=== PATIENT | female | born 1990 | race Caucasian/White ===

== ENCOUNTER → 2020-01-16 10:36 | Outpatient (BNVA) | payer MEDICAID, SELFPAY | PROVIDERS: Family Provider Nurse Practitioner; Visit Provider Family Medicine | DX: R07.9 Chest pain, unspecified (principal); F17.200 Nicotine dependence, unspecified, uncomplicated; F10.10 Alcohol abuse, uncomplicated | CPT/HCPCS: 80053; 80061; 83721; 84443; 85025 ==

== ENCOUNTER → 2021-12-09 13:46 | Outpatient (BNVA) | payer MEDICAID, SELFPAY | PROVIDERS: Family Provider Nurse Practitioner; PCP Nurse Practitioner; Visit Provider Student in an Organized Health Care Education/Training Program | DX: M77.11 Lateral epicondylitis, right elbow (principal); M75.41 Impingement syndrome of right shoulder | CPT/HCPCS: 20610; 73080; 99204; J3301 ==

== ENCOUNTER 2022-05-28 11:47 | Outpatient (CLI) | payer MEDICAID, SELFPAY ==
--- NOTE | 2022-05-28 12:00 | MR_ITS ---
WS: [id number] EXAMINATION: MR shoulder RT wo con* [id number] ORDER DATE: 05/28/2022 12:08 PM COMPARISON: None. HISTORY: R20.0 - Anesthesia of skin CONTRAST: None. TECHNIQUE: Axial T2 STAR, coronal proton density fat sat, sagittal T2 fat sat, sagittal proton densit y fat sat, axial proton density fat sat, coronal T2 fat sat, and coronal T1 performed. After contrast , axial T1 fat sat, coronal T1 fat sat, and sagittal T1 fat sat were performed. FINDINGS: Moderate degenerative arthritis AC joint with mild edema. Slight subacromial spurring. Mild narrowing of the subacromial space. Tendinopathy distal supraspinatus and infraspinatus. Tiny undersurface ins ertional tears supraspinatus and infraspinatus distally. Normal teres minor and subscapularis. No hig h-grade rotator cuff tears. Biceps tendon is intact within the bicipital groove. Glenoid labrum appears grossly intact. Intra-art icular biceps tendon appears intact. Biceps labral anchor appears intact. MR/MR shoulder RT wo con* [id number] IMPRESSION: 1. Moderate degenerative arthritis AC joint with mild edema. Slight subacromia l spurring. Impingement on the distal supraspinatus with mild subacromial narro wing. 2. Tiny undersurface tear distal supraspinatus and infraspinatus at the insert ion. Tendinopathy supraspinatus and infraspinatus. 3. No high-grade rotator cuff tears. 4. Normal biceps tendon in the bicipital groove. 5. No other suspicious findings.
== END 2022-05-28 11:48 | disposition home or self-care (01) ==
LOC: RAD 11:50
PROVIDERS: PCP Nurse Practitioner; Visit Provider Student in an Organized Health Care Education/Training Program
DX: R20.0 Anesthesia of skin (principal); R20.2 Paresthesia of skin; M19.011 Primary osteoarthritis, right shoulder
CPT/HCPCS: 73221

== ENCOUNTER → 2022-07-14 15:19 | Outpatient (BNVA) | payer MEDICAID, SELFPAY | PROVIDERS: PCP Nurse Practitioner; Visit Provider Orthopaedic Surgery | DX: M54.2 Cervicalgia (principal) | CPT/HCPCS: 72050 ==

== ENCOUNTER 2022-07-30 12:50 | Outpatient (CLI) | payer MEDICAID, SELFPAY ==
--- NOTE | 2022-07-30 13:00 | MR_ITS ---
WS: [id number] MRI CERVICAL SPINE NONCONTRAST HISTORY: neck pain, RIGHT upper extremity pain. COMPARISON: 07/14/2022 Technique: Multiplanar, multisequence noncontrast imaging of the cervical spine. Mild straightening of the normal cervical lordosis. Signal within the cervical cord is normal. Visualized posterior fossa is unremarkable. Craniocervical junction, C1 and C2 relationship, odontoid process and soft tissues are normal. C2-C3: Normal. C3-C4: Normal. C4-C5: Normal. C5-C6: Normal. C6-C7: Normal. C7-T1: Normal. Paraspinal soft tissue are normal. MR/MR cervical spin wo con* [id number] IMPRESSION: Normal MRI C-spine.
== END 2022-07-30 12:51 | disposition home or self-care (01) ==
PROVIDERS: PCP Nurse Practitioner; Visit Provider Orthopaedic Surgery
DX: M54.2 Cervicalgia (principal)
CPT/HCPCS: 72141

== ENCOUNTER 2022-11-26 08:05 | Day surgery (SDC) | payer MEDICAID, SELFPAY ==
[2022-11-26] VITALS (13 sets, daily range): BP systolic 141–166; BP diastolic 100–119; PULSE 55–99; RESP 14–24; TEMP 36.1–36.3; O2SAT 98–100; BMI 25.4
[2022-11-26 08:48] LABS: OR HCG Qualitative Urine Negative (Negative)
--- NOTE | 2022-11-26 09:00 | P.ANESASSM_ITS ---
Pre-Anesthetic Assessment Height/Weight: Height 1.75 m Weight 78.018 kg Temp Pulse Resp BP Pulse Ox O2 Del Method 97.4 F L 82 14 141/103 99 Room Air 11/26/22 08:23 11/26/22 09:44 11/26/22 09:44 11/26/22 09:44 11/26/22 09:44 11/26/22 09:30 Preop Diagnosis: Right carpal Tunnel syndrome, right shoulder AC arthritis, subacromial impi Operation Date: 11/26/22 09:45 Proposed Procedures p Carpal Tunnel Release(Right) - Larry Radha, DO s Shoulder Arthroscopy(possible bicep tenodesis)(Right) - Larry [place], DO s Subacromial Decompression(rotator cuff debridement)(Right) - Larry Radha, DO s AC Joint Resection(Right) - Larry Radha, DO Familial anesthetic complications: None Was Beta Gauri taken within 24 hours: N/A Was Clonidine taken within 24 hours: N/A Last intake: Intake Last Liquid Date 11/25/22 Last Liquid Time 15:00 Last Solid Date 11/25/22 Last Solid Time 15:00 Social Alcohol and No tobacco Exam alert, oriented x 3, clear to auscultation bilaterally and regular rate & rhythm Airway Mallampati: Class II Dentition: full GI Gastroesophageal Reflux Disease Anesthetic Plan ASA status: 2 Anesthesia: General and Regional (specify below) Risk of > 500 ml blood loss (7ml/kg in children): No Medications/Allergies Home Medications Medication Instructions Recorded Confirmed Last Taken Type mirtazapine 15 mg tablet (Remeron) 15 mg PO DAILY #30 tabs 09/24/22 11/26/22 09/16/22 Rx ondansetron 4 mg disintegrating 4 mg PO Q8H PRN nausea and 11/26/22 Unknown Rx tablet vomiting 3 days #9 tabs oxycodone-acetaminophen 5 mg-325 1 tab PO Q6H PRN pain 7 days #28 11/26/22 Unknown Rx mg tablet (Percocet) tabs Allergies Allergy/AdvReac Type Severity Reaction Status Date / Time hydrocodone Allergy ADR-Itching Verified 11/26/22 08:28 Current Medications Generic Name Dose Route Start Last Admin Trade Name Freq PRN Reason Stop Dose Admin Sodium Chloride 1,000 mls @ 30 mls/hr 11/26/22 08:15 11/26/22 09:14 Sodium Chloride 0.9% IV 11/27/22 08:14 30 mls/hr .Q24H KOURTNEY Administration Scopolamine 1 patch 11/26/22 08:09 11/26/22 09:48 Scopolamine 1.5 Patch TRANSDERMA 1 patch ONCE PRN Administration anesthetic related nausea PFSH Anesthesia Medical History Bronchitis GERD (gastroesophageal reflux disease) Impingement syndrome, shoulder Right tennis elbow Social History Smoking and tobacco/nicotine status: current every day tobacco/nicotine user Second hand smoke exposure: No Alcohol intake: current Alcohol intake frequency: 3 or more drinks per day Alcohol type: hard liquor Substance/Drug Use: current Adopted: No Caregiver/support person: No Lives independently: No Female Reproductive History Date of last menstrual period: 10/28/22 Data Anesthesia Cardiac Studies: No Data to Display
--- NOTE | 2022-11-26 09:08 | W.PM.OPSUD ---
Surgery/Procedure H&P Update DATE OF PROCEDURE: November 26, 2022 DATE H&P PERFORMED: 11/06/22 H&P UPDATE INFORMATION: I have reviewed H&P completed within last 30 days, I have examined patient prior to procedure and No changes to prior documentation PREOP DIAGNOSIS: Right carpal Tunnel syndrome, right shoulder AC arthritis, subacromial impi PRIMARY INDICATION FOR PROCEDURE: Right carpal tunnel syndrome, right shoulder AC joint arthritis, subacromial impingement, biceps tendinitis, rotator cuff tear PLANNED PROCEDURE: Operation Date: 11/26/22 09:45 Proposed Procedures p Carpal Tunnel Release(Right) - DO shasta Goodwin Shoulder Arthroscopy(possible bicep tenodesis)(Right) - DO shasta Goodwin Subacromial Decompression(rotator cuff debridement)(Right) - DO shasta Goodwin AC Joint Resection(Right) - Larry Garcia DO
[2022-11-26] MEDS: sodium chloride 0.9% 1,000 ML 30 ML IV (09:14)
[2022-11-26] MEDS: ketorolac 30 mg/mL INJ IVP (09:16)
[2022-11-26] MEDS: acetaminophen 1,000 MG/100 ML PIGGYBACK 400 MG IV (09:17)
[2022-11-26] MEDS: scopolamine 1.5 Patch 1 PATCH TRANSDERMA (09:48)
--- NOTE | 2022-11-26 10:29 | ANES.PROC ---
Anesthesia Procedures Procedure/Date: 11/26/22 Nerve Block ^: Nerve Block 1: Main Anesthesia: general anesthesia Time Out Performed: Yes Consent: requested by attending/covering physician, from patient, from other, risks and benefits reviewed and patient agrees to proceed Nerve block location: interscalene (R) Anesthesia monitors applied: pulse oximetry, EKG, BP cuff and oxygen Nerve block position: supine Anesthetic Used: ropivicaine 0.5% (20 ml) and with decadron ( 4 mg) Ultrasound used to: recognize landmarks, visualize and ID brachial plexus, in supraclavicular region and visualize and ID interscalene groove Nerve Stimulator Used?: No Interscalene/Femoral BLK: 2 stimuplex 22 g needle used for position and inplane approach, visualize local anesthetic spread and no vascular puncture identified Injection: neg aspiration of heme Patient Tolerated Procedure: well Complications: none
[2022-11-26] MEDS: ceFAZolin 2,000 MG in sodium chloride 0.9% (plus) 50 ML 100 MG IV (10:34)
[2022-11-26] MEDS: lidocaine-epi 2% PF 1:200,000 20 mL SDV XX (12:41)
[2022-11-26] MEDS: ROPivacaine 0.5% SDV 30 mL 150 MG INJECTION (12:41)
--- NOTE | 2022-11-26 12:54 | P.BOP_ITS ---
Date of Procedure: 11/26/2022 Surgeon: Larry Garcia DO Machine Hose Cutter(s): None Procedure(s) performed: Right shoulder diagnostic and surgical arthroscopy with biceps tenodesis Right shoulder diagnostic and surgical arthroscopy subacromial decompression Right shoulder diagnostic and surgical arthroscopy AC joint resection Right shoulder diagnostic and surgical arthroscopy with rotator cuff debridement Right carpal tunnel release Findings of the procedure(s): Right shoulder subacromial impingement AC resection and partial rotator cuff tearing, biceps tendonitis And unstable biceps labrum anchor, procedure went as planned, right carpal tunnel syndrome, right carpal tunnel release went as planned with no complications Estimated blood loss: 15 cc Specimen(s) removed: None Post-operative diagnosis: Right carpal tunnel syndrome, right shoulder biceps tendinitis/labral tearing, AC joint arthritis, subacromial impingement, partial bursal sided rotator cuff tearing
--- NOTE | 2022-11-26 12:57 | P.OP_ITS ---
Operative Report Date of procedure: November 26, 2022 Pre-op diagnosis: Right carpal tunnel syndrome, right shoulder AC joint arthritis, subacromial impingement, biceps tendinitis, rotator cuff tear Implants: Arthrex 4.75mm biceps tenodesis loop and tack kit Surgeon: Larry Garcia DO Procedure: Post-op diagnosis: ?Right carpal tunnel syndrome, right shoulder biceps tendinitis/labral tearingUnstable biceps anchor, AC joint arthritis, subacromial impingement, partial bursal sided rotator cuff tearing Procedure done: Right shoulder diagnostic and surgical arthroscopy with biceps tenodesis Right shoulder diagnostic and surgical arthroscopy subacromial decompression Right shoulder diagnostic and surgical arthroscopy AC joint resection Right shoulder diagnostic and surgical arthroscopy with rotator cuff debridement Right carpal tunnel release Surgeon: Larry Garcia DO Estimated blood loss: 15 Esmarch tourniquet for carpal tunnel release 9 minutes IV fluids: 800mL Complications: None Findings: See operative report narrative Condition: stable Disposition: same day Procedure: Brief History: Patient been seen and worked up in the outpatient setting for right shoulder pain and right hand numbness and tingling.? Patient's been worked up for her C- spine. Which has been negative. She has positive right carpal tunnel syndrome on nerve conduction study and she is responded only for temporary relief due to conservative treatment for right shoulder pain of cortisone therapy. At this point time she had an MRI which showed findings listed below. Given she has failed conservative treatment we talked about her treatment options. At this point in time We talked about risk benefits complication alternatives surgical n onsurgical treatment options.? Patient at this point time through shared decision making like to proceed with a right shoulder diagnostic and surgical arthroscopy as well as while under anesthesia would like to have the right carpal tunnel released.? Through shared decision making agreed to proceed with this plan.? All questions answered.? Understanding her risk of surgery she agrees to proceed with surgical intervention.? All questions have been answered at this time.? Patient elects proceed with surgery and consent obtained in office. MR/MR shoulder RT wo con* [id number] IMPRESSION: ? 1.? Moderate degenerative arthritis AC joint with mild edema. Slight subacromial spurring. Impingement on the distal supraspinatus with mild subacromial narrowing. 2.? Tiny undersurface tear distal supraspinatus and infraspinatus at the insertion. Tendinopathy supraspinatus and infraspinatus. 3.? No high-grade rotator cuff tears. 4.? Normal biceps tendon in the bicipital groove. 5.? No other suspicious findings. ? . Procedure: Patient seen evaluated in the preoperative holding area.? Consent reviewed and signed with patient.? Once again reviewed patient's MRI results as well as? planned surgical intervention.? Correct extremity marked.? Patient seen evaluated by anesthesia department received regional anesthesia.? Once ready for surgery was taken back to the operative suite.? Patient then subsequently underwent anesthesia per the anesthesia department was transported onto the OR table.? Patient was then placed into a lateral decubitus position with a beanbag and was appropriately secured to the bed.? All bony prominences well-padded.? Patient then had the right upper extremity was then prepped and draped in standard orthopedic fashion.? Patient received appropriate preoperative antibiotics.? Final timeout performed. The right upper extremity was then held in hanging from traction utilizing sterile technique.? Next started with standard diagnostic and surgical arthroscopy with posterior portal position introduced arthroscope into the glenohumeral joint.? Visualized the glenohumeral joint I then introduced a spi nal needle within the rotator cuff interval to confirm appropriate anterior portal placement.? Once this was confirmed I then made my small incision and then introduced my arthroscopic shaver into the glenohumeral joint.? After flushing the joint fluid, was clearly evident patient had biceps tendon tearing as well as unstable biceps anchor most pronounced in the posterior aspect of the superior labrum.? Given there appears to be healthy intra-articular tendon plan was for an intra-articular biceps tenodesis at the superior portion as it enters the intertubercular groove, given patient is a young labor. Thermal wand introduced into the rotator interval.? I then release of the rotator interval to have appropriate visualization and the inability to perform biceps tenodesis.? At this point I established a purple passport cannula which was introduced.? Next I performed an Arthrex loop and tap biceps tenodesis.? Passer was then made through the tendon luggage tag stitch around and then lassoed around twice I then utilized a thermal wand to release the biceps tendon at the anchor to perform with tenotomy.? I then loaded with suture onto an Arthrex 4.75 swivel lock suture anchor.? A punch was then placed in appropriate position at the entry point into the intertubercular groove just superior to the subscapularis tendon.? Punch was then introduced to the appropriate depth.? The suture loaded on the swivel lock was then advanced held under appropriate tension and shoulder lock anchor was then advanced and had excellent fixation.? Excess suture was then cut biceps tenodesis was complete.? I then utilized a thermal wand to seal the edges of the superior labrum. Visualization of the labrum was grossly intact with just mild slight fraying throughout.? Thermal wand was used to seal up the frayed edges of the labrum.? Next Axillary recess was free from loose bodies.? Cartilage was found to be intact intra-articular and only grade 0 chondromalacia noted. ?Next a visualized the rotator cuff superiorly and there was found negative escape bubble sign the rotator cuff is failed to be intact with no partial tearing of the undersurface.? ? This completed my work within the glenohumeral joint all fluid was suctioned free of the joint.? ?Next I reintroduced the arthroscope posteriorly.? And went to the subacromial space.? I established my lateral working portal.? Thermal wand was then introduced laterally and then I subsequently performed extensive bursectomy of the subacromial space.? Patient had pronounced anterior bone spur.? At this point time I proceeded with my AC joint resection thermal wand was used and track to the anterior edge of the acromion and then tracked all the way to the AC joint.? Once identified the AC joint this was very arthritic in nature.? Thermal wand was placed anteriorly to establish appropriate plane for AC joint resection.? Once appropriate margins and anterior inferior and anterior capsule was released I then introduced arthroscopic shaver and a bur and performed AC joint resection of both the acromion to coplane at the AC joint and a distal clavicle resection was then performed totaling 1 cm in size and was confirmed.? This completed my AC joint resection and I then introduced the arthroscopic shaver laterally while continuing to view posteriorly.? I then performed an acromioplasty to complete my subacromial decompression prior to rotator cuff evaluation subacromially. ?Next the arthroscopic shaver was then introduced laterally at this point time completed my subacromial bursectom? With complete bursectomy performed I then utilized the arthroscopic bur to perform acromioplasty and coplaning of the anterior bone spur.? Next I then visualized the rotator cuff and took the shoulder through range of motion which was found Small partial articular sided fraying and tearing but no full-thickness rotator cuff tear. As result utilized arthroscopic shaver to perform rotator cuff debridement.? I then took the shoulder through range of motion and once again visualize rotator cuff moving as a unit with no full-thickness rotator cuff tear. I then switched my arthroscopic viewing portal through the lateral portal to confirm appropriate acromioplasty and finalized touches were then performed of the acromioplasty and bursectomy at that time.? Once again visualize rotator cuff and this was intact.? This completed my diagnostic and surgical arthroscopy of the shoulder.? ?All fluid was suctioned from the shoulder.? All instruments were removed.? The lateral incision was then closed with nylon stitches.? As well as the portal sites closed with portal nylon stitches.? Xeroform 4 x 4's ABD and tape was then applied to the shoulder.? All drapes were completely taken down.? At this point in time an armboard was applied to the right arm with plan for proceeding with carpal tunnel release.? Beanbag was deflated patient was laid in supine position right arm to the armboard.? Patient's right upper extremity was then prepped and draped in standard orthopedic fashion.? Final timeout performed once again to confirm right carpal tunnel release. Under sterile aseptic technique patient received local anesthesia over the preplanned carpal tunnel incision site.? Esmarch was used and made an Esmarch tourniquet at the right forearm in order to not place pressure on the biceps given bicep tenodesis repair. A standard mini open carpal tunnel incision was made.? Starting distally at De Oliveira's cardinal line in line with the fourth ray extending proximally distal to the wrist crease.? Sharp scalpel incision was made through skin and subcutaneous tissue.? Self-retaining retractor was placed and the palmar fascia was identified.? This was then split longitudinally and direct visualization of the transverse carpal ligament was then made.? I then utilizing scalpel feathered through the transverse carpal ligament until I entered the floor of the transverse carpal tunnel ligament into the carpal tunnel.? Next I switched to dissection scissors and completed my release of the transverse carpal ligament distally with care to protect the recurrent motor branch.? I completely released into the palmar fat and until no entrapment was noted distally.? Care was made to protect the superficial palmar arch during my distal dissection.? Next I then placed a [place] underneath the transverse carpal tunnel ligament to protect the contents of the carpal tunnel and subsequently utilizing dissection scissors under loupe magnification completely released the transverse carpal ligament proximally into the median antebrachial fascia.? Care was made to protect the palmar cutaneous branch by keeping my scissors curved ulnarly.? Once completely released, I then placed my [place] and had appropriate decompression of the carpal tunnel proximally as well as distally.? I then inspected the contents of the carpal tunnel which showed an hourglass shape of the median nerve showing its compression.? No masses were noted.? Tendons appeared healthy.? Wound was then thoroughly irrigated.? Tourniquet deflated.? Hemostasis satisfactory with bipolar electrocautery.? I then closed the incision with interrupted nylon stitches.? Xeroform 4 x 4's and a bulky soft dressing was applied to the right upper extremity as well as sling to the right shoulder.? Patient was then awakened from anesthesia and taken to PACU in stable condition.? Patient tolerated procedure without complications. Disposition: Patient taken to PACU in stable condition recovering well.? Dressing clean dry and intact.? Patient will receive appropriate discharge instructions as well as pain medication postoperatively.? Patient to follow-up with me in the office in 2 weeks.? They understand they may be nonweightbearing to the operative extremity will follow bicep tenodesis protocol. UltraSling on in place at this time. Pt to keep incision clean dry and intact.? Patient understands if any questions or concerns he may contact the office.
[2022-11-26] MEDS: labetalol 5 mg/mL SDV 20mL 10 MG IVP (13:20)
--- NOTE | 2022-11-26 13:20 | ANE.PACU2 ---
Inpatient post-anesthesia follow up: Airway intact: Yes Vital signs: Temperature 97 F Pulse Rate 60 Respiratory Rate 18 Blood Pressure 155/112 Pulse Oximetry 99 Oxygen Delivery Me thod Room Air Oxygen Flow Rate Fraction of Inspir ed Oxygen Hydration adequate: Yes Nausea and vomiting: No Pain level: 1 Mental status: Baseline
[2022-11-26] MEDS: oxyCODONE-APAP 5-325 mg Tablet 1 TAB PO (13:42)
== END 2022-11-26 14:13 | disposition home or self-care (01) ==
PROVIDERS: Anesthesiology; PCP Nurse Practitioner; Visit Provider Student in an Organized Health Care Education/Training Program
PROC: (CPT 64721; principal; 2022-11-26 09:35)
PROC: (CPT 29805; 2022-11-26 09:35)
PROC: (CPT 29826; 2022-11-26 09:35)
PROC: 0RSG0ZZ Reposition Right Acromioclavicular Joint, Open Approach (ICD-10-PCS; CPT 29823; 2022-11-26 09:35)
DX: G56.01 Carpal tunnel syndrome, right upper limb (principal); M19.011 Primary osteoarthritis, right shoulder; M75.41 Impingement syndrome of right shoulder; M75.21 Bicipital tendinitis, right shoulder; M75.101 Unspecified rotator cuff tear or rupture of right shoulder, not specified as traumatic; K21.9 Gastro-esophageal reflux disease without esophagitis
CPT/HCPCS: 29823; 29824; 29828; 64721; 81025; 84703; C1713; J0131; J0690; J1100; J1200; J1885; J2250; J2405; J2704; J2710; J2795; J3010; J3490; J7030

== ENCOUNTER 2023-01-05 06:00 | Outpatient (RCR) | payer MEDICAID, SELFPAY | END 2023-01-07 23:59 | disposition home or self-care (01) | LOC: WPT 06:00 | PROVIDERS: Visit Provider Student in an Organized Health Care Education/Training Program | DX: Z98.890 Other specified postprocedural states (principal) | CPT/HCPCS: 97161 ==

== ENCOUNTER → 2023-10-01 07:45 | Outpatient (BNVA) | payer MEDICAID, SELFPAY | PROVIDERS: PCP Nurse Practitioner Family; Visit Provider Nurse Practitioner Women's Health | DX: Z34.90 Encounter for supervision of normal pregnancy, unspecified, unspecified trimester (principal); Z78.9 Other specified health status | CPT/HCPCS: 80307; 81025; 83036; 84439; 84443; 84702 ==

== ENCOUNTER → 2023-10-06 12:37 | Outpatient (BNVA) | payer MEDICAID, SELFPAY | PROVIDERS: PCP Nurse Practitioner Family; Visit Provider Nurse Practitioner Women's Health | DX: O26.891 Other specified pregnancy related conditions, first trimester (principal) | CPT/HCPCS: 76801 ==

== ENCOUNTER → 2023-10-13 07:53 | Outpatient (BNVA) | payer MEDICAID, SELFPAY | PROVIDERS: PCP Nurse Practitioner Family; Visit Provider Nurse Practitioner Women's Health | DX: Z34.80 Encounter for supervision of other normal pregnancy, unspecified trimester (principal) | CPT/HCPCS: 80307; 84315; 85025; 86592; 86762; 86803; 86850; 86900; 87086; 87340; 87806 ==

== ENCOUNTER → 2023-10-14 00:11 | Outpatient (BNVA) | payer MEDICAID, SELFPAY | PROVIDERS: PCP Nurse Practitioner Family; Visit Provider Nurse Practitioner Women's Health | DX: Z34.80 Encounter for supervision of other normal pregnancy, unspecified trimester (principal) | CPT/HCPCS: 87522 ==

== ENCOUNTER → 2023-10-25 07:54 | Outpatient (BNVA) | payer MEDICAID, SELFPAY | PROVIDERS: PCP Nurse Practitioner Family; Visit Provider Obstetrics & Gynecology | DX: Z34.80 Encounter for supervision of other normal pregnancy, unspecified trimester (principal) | CPT/HCPCS: 80076; 84315; 87340; 87491; 87591; 87624 ==

== ENCOUNTER → 2023-11-23 13:54 | Outpatient (BNVA) | payer MEDICAID, SELFPAY | PROVIDERS: PCP Nurse Practitioner Family; Visit Provider Nurse Practitioner Women's Health | DX: Z34.90 Encounter for supervision of normal pregnancy, unspecified, unspecified trimester (principal) | CPT/HCPCS: 82105; 84315 ==

== ENCOUNTER → 2023-12-07 14:27 | Outpatient (BNVA) | payer MEDICAID, SELFPAY | PROVIDERS: PCP Nurse Practitioner Family; Visit Provider Obstetrics & Gynecology | DX: O26.892 Other specified pregnancy related conditions, second trimester (principal); Z3A.20 20 weeks gestation of pregnancy | CPT/HCPCS: 76805 ==

== ENCOUNTER → 2024-01-03 14:27 | Outpatient (BNVA) | payer MEDICAID, SELFPAY | PROVIDERS: PCP Nurse Practitioner Family; Visit Provider Nurse Practitioner Women's Health | DX: Z34.80 Encounter for supervision of other normal pregnancy, unspecified trimester (principal) | CPT/HCPCS: 82950; 84315 ==

== ENCOUNTER → 2024-01-31 11:24 | Outpatient (BNVA) | payer MEDICAID, SELFPAY | PROVIDERS: PCP Nurse Practitioner Family; Visit Provider Obstetrics & Gynecology | DX: Z34.80 Encounter for supervision of other normal pregnancy, unspecified trimester (principal) | CPT/HCPCS: 84315; 85025 ==

== ENCOUNTER → 2024-03-06 10:15 | Outpatient (BNVA) | payer MEDICAID, SELFPAY | PROVIDERS: PCP Nurse Practitioner Family; Visit Provider Obstetrics & Gynecology | DX: Z34.80 Encounter for supervision of other normal pregnancy, unspecified trimester (principal) | CPT/HCPCS: 84315; 85025 ==

== ENCOUNTER → 2024-03-17 12:45 | Outpatient (BNVA) | payer MEDICAID, SELFPAY | PROVIDERS: PCP Nurse Practitioner Family; Visit Provider Nurse Practitioner Women's Health | DX: Z34.80 Encounter for supervision of other normal pregnancy, unspecified trimester (principal) | CPT/HCPCS: 84315 ==

== ENCOUNTER → 2024-04-03 13:22 | Outpatient (BNVA) | payer MEDICAID, SELFPAY | PROVIDERS: PCP Nurse Practitioner Family; Visit Provider Obstetrics & Gynecology | DX: Z34.80 Encounter for supervision of other normal pregnancy, unspecified trimester (principal) | CPT/HCPCS: 84315; 87081 ==

== ENCOUNTER → 2024-04-14 12:55 | Outpatient (BNVA) | payer MEDICAID, SELFPAY | PROVIDERS: PCP Nurse Practitioner Family; Visit Provider Obstetrics & Gynecology | DX: Z34.80 Encounter for supervision of other normal pregnancy, unspecified trimester (principal) | CPT/HCPCS: 84315 ==

== ENCOUNTER 2024-04-16 22:48 | Inpatient (IN) | payer MEDICAID, SELFPAY ==
[2024-04-16] VITALS (13 sets, daily range): BP systolic 119–138; BP diastolic 66–83; PULSE 73–106; TEMP 36; BMI 30.8
[2024-04-16 18:10] LABS: Basophils % 0.2 %; Eosinophils # 0.1 10^3/uL (0.0-0.8); Eosinophils % 0.5 %; Hematocrit 35.9 % (36-47); Lymphocytes # 2.2 10^3/uL (0.8-4.8); Lymphocytes % 20.9 %; Mean Corpuscular HGB Conc 34.5 g/dL (30-55); Mean Corpuscular Hemoglobin 31.2 pg (27-33); Mean Corpuscular Volume 90.4 fl (85-98); Mean Platelet Volume 10.9 fL (7.4-10.4); Monocytes # 0.5 10^3/uL (0.2-0.9); Monocytes % 4.7 %; Neutrophils # 7.76 10^3/uL (1.8-7.7); Neutrophils % 73.3 %; Nucleated Red Blood Cells % 0 %; Platelet Count 224 10^3/cmm (157-399); Red Blood Count 3.97 10^6/uL (3.85-5.65); Red Cell Distribution Width 12.4 % (12.1-15.1); White Blood Count 10.58 10^3/uL (3.29-11.43)
[2024-04-16] MEDS: miSOPROStol 100 mcg tablet 25 MCG VAGINAL (18:19)
--- NOTE | 2024-04-16 18:27 | PM.OPHPUD ---
Labor & Delivery H&P Update Date of Procedure: April 16, 2024 Date H&P Performed: 11/06/22 Changes to previous documentation: 34-year-old female at 39 weeks gestation with JAYLAN 04/23/2024 admitted to labor and delivery for elective induction of labor. Patient's record has been reviewed. PMH?hep C with undetectable viral load. EFM?category 1 Cervix?2 cm / 50%/-2 vertex presentation by nursing staff. Admission Diagnosis: Preop diagnosis: 39-week IUP Primary indication for procedure: Elective induction of labor Planned procedure: Cervical ripening with induction of labor Related Problem List Diagnoses (1) 39 weeks gestation of : (2) History of hepatitis C: (3) Request for sterilization: (4) History of drug abuse in remission: (5) Tobacco abuse:
[2024-04-16] MEDS: lactated ringers 1,000 ML 999 ML IV (22:54)
[2024-04-17] VITALS (185 sets, daily range): BP systolic 106–157; BP diastolic 56–101; PULSE 60–100; RESP 16–18; TEMP 36.4–36.8; O2SAT 88–100
[2024-04-17] MEDS: sodium chloride 0.9% 500 ML IV (02:10)
--- NOTE | 2024-04-17 02:27 | ANES.PREANE2 ---
Pre-Anesthetic Assessment Height/Weight: Height 1.78 m Weight 97.522 kg Temp Pulse BP O2 Del Method 96.8 F L 70 145/87 Room Air 04/16/24 19:54 04/17/24 02:25 04/17/24 02:25 04/16/24 17:22 Preop Diagnosis: 39-week IUP Epidural Familial anesthetic complications: None Was Beta Gauri taken within 24 hours: N/A Was Clonidine taken within 24 hours: N/A Last intake: Solid food: 0 Social Tobacco and No alcohol 1 pack(s) per day Exam alert, oriented x 3, clear to auscultation bilaterally and regular rate & rhythm Airway Submandibular: within normal limits Cervical ROM: within normal limits Mallampati: Class III Dentition: full History/ROS No significant history except as noted and No significant complaints Pulmonary None reported CV/HEM None reported None reported Hepatic Hx hep c GI Gastroesophageal Reflux Disease Metabolic None reported Musc/skel None reported Neuropsych Neuropathy Anesthetic Plan ASA status: 2 Anesthesia: Anesthesia Evaluation, General and Regional (specify below) (Epidural) Risk of > 500 ml blood loss (7ml/kg in children): Yes, adequate IV access and fluids planned Medications/Allergies Home Medications ?Medication ?Instructions ?Recorded ?Confirmed ?Last Taken ?Type docosahexaenoic acid 200 mg 200 mg PO DAILY 11/23/23 04/16/24 04/15/24 History capsule ( [facility]) omeprazole 40 mg capsule,delayed 40 mg PO DAILY #90 caps 11/23/23 04/16/24 04/15/24 Rx release Allergies Allergy/AdvReac Type Severity Reaction Status Date / Time hydrocodone Allergy ADR-Itching Verified 04/14/24 09:31 Current Medications Generic Name Dose Route Start Last Admin Trade Name Freq PRN Reason Stop Dose Admin Lactated Ringer's 1,000 mls @ 999 mls/hr 04/16/24 22:44 04/17/24 01:35 Lactated Ringers IV 999 mls/hr .Q1H1M PRN Infusion Per L&D Rescitation Protocol Sodium Chloride 500 mls @ 500 mls/hr 04/17/24 01:42 04/17/24 02:10 Sodium Chloride 0.9% IV 500 mls/hr .Q1H PRN Administration See label comments [facility] Anesthesia Medical History History of hepatitis C treated with medication Impingement syndrome, shoulder Right tennis elbow Bronchitis GERD (gastroesophageal reflux disease) Surgical History H/O shoulder surgery Social History Smoking and tobacco/nicotine status: current every day tobacco/nicotine user Female Reproductive History : 3 Data Anesthesia 04/16/24 17:45 Short CBC 04/16/24 Range/Units 17:45 WBC 10.58 (3.29-11.43) 10^3/uL Hgb 12.40 (11.27-16.99) g/dL Hct 35.9 L (36-47) % MCV 90.4 (85-98) fl Plt Count 224 (157-399) 10^3/cmm Neut % (Auto) 73.3 % Neut # (Auto) 7.76 H (1.8-7.7) 10^3/uL Cardiac Studies: No Data to Display
[2024-04-17] MEDS: dextrose 5%-lactated ringers 1,000 ML 125 ML IV ×2 (02:38→09:46)
--- NOTE | 2024-04-17 02:59 | ANES.PROC ---
Anesthesia Procedures Procedure/Date: 04/17/24 Epidural: Time Out Performed: Yes Consents Signed: Procedure Consent and NPO Consent Consent: requested by attending/covering physician, from patient, risks and benefits reviewed and patient agrees to proceed Lumbar Level: L3-L4 Epidural position: sitting Epidural procedure: sterile prep of area (betadine), 1% lidocaine to numb the area (3 mLs), neg for paresthesia, test dose given, 1.5% xylocaine 1:200k epi (3 mLs/ 2 mLs), 0.2% Ropivacaine bolus ml (5 mLs), placed PCEA, no systemic response, sterile dressing applied, L.U.D. no apparent complications and 0.2% Ropiavacaine @ mls/hr (13) Additional Comments: TA 6cm, catheter threaded to 12cm. Negative aspiration for CSF and blood. Patient tolerated well.
--- NOTE | 2024-04-17 03:53 | PC.NURSE ---
report given to Sheyla Obando RN at [id number]
[2024-04-17] MEDS: ROPivacaine syringe 100 MG/50 ML SYRINGE 10 MG EPIDURAL ×2 (06:17→09:40)
[2024-04-17] MEDS: acetaminophen 325 mg Tablet 650 MG PO ×2 (08:04→15:38)
[2024-04-17] MEDS: oxytocin 30 UNIT/500 ML BAG IV (09:45)
--- NOTE | 2024-04-17 09:48 | P.PN_ITS ---
Subjective 2 Subjective: Patient received Cytotec last night 1 dose followed by contractions every 2 minutes therefore a second dose was not applied. Patient progressed to 4 cm and has had no further progression. Discussed Pitocin this morning to assist progression of labor. Patient understands and agrees. EFM?category 1 with contractions q. 2 to 4 minutes. Vitals/I&O/Wt Last Vital Signs Temp 98.3 F 04/17/24 08:00 Pulse 76 04/17/24 09:41 Resp 18 04/17/24 05:00 BP 115/56 04/17/24 09:31 Pulse Ox 100 04/17/24 09:41 O2 Del Method Room Air 04/16/24 17:22 04/16/24 04/17/24 04/17/24 22:59 06:59 14:59 Intake Total 1500.00 / 1500.00 941.667 / 941.667 Output Total 200 / 200 Balance 1300.00 / 1300.00 941.667 / 941.667 Weight last 48 hrs Weight 97.522 kg Physical Exam 2 Urinary Catheter Management: Araujo: Cath Placed During This Visit: yes Reason for Continuing Indwelling Catheter: Required Immobilization for Trauma or Surgery or Anesthesia Urinary Catheter Date of Insertion: 04/17/24 Urinary Catheter Time of Insertion: 03:24 Data 04/16/24 17:45 A&P Assessment and plan (1) 39 weeks gestation of : (2) History of hepatitis C: (3) Request for sterilization: (4) History of drug abuse in remission: PDMP PDMP Reviewed: Not Reviewed Attestations 2 Medical Necessity Statement*: Elective induction of labor Coding Level of Care Code Acute Code for Chg Fwd Diagnoses 39 weeks gestation of Z3A.39 History of hepatitis C Z86.19 Request for sterilization Z30.2 History of drug abuse in remission F19.11
--- NOTE | 2024-04-17 12:01 | P.PN_ITS ---
CONTINUING EDUCATION DEAN Subjective 2 Subjective: Interval history: Patient complain of feeling vaginal pressure. EFM variables noted with contractions. Cervix?complete 0 station with bloody show. Nursing staff to start pushing with patient and preparing for delivery.. Labor: Station: -2 Amniotic Membrane Status: Ruptured Monitor Mode: External Contraction Pattern: Irregular Status: Category I Vitals/I&O/Wt Last Vital Signs Temp 97.9 F 04/17/24 10:33 Pulse 87 04/17/24 11:56 Resp 18 04/17/24 05:00 BP 122/74 04/17/24 11:30 Pulse Ox 99 04/17/24 11:56 O2 Del Method Room Air 04/16/24 17:22 04/16/24 04/17/24 04/17/24 22:59 06:59 14:59 Intake Total 1500.00 / 1500.00 950.667 / 950.667 Output Total 200 / 200 Balance 1300.00 / 1300.00 950.667 / 950.667 Weight last 48 hrs Weight 97.522 kg Physical Exam 2 Urinary Catheter Management: Araujo: Cath Placed During This Visit: yes Reason for Continuing Indwelling Catheter: Required Immobilization for Trauma or Surgery or Anesthesia Urinary Catheter Date of Insertion: 04/17/24 Urinary Catheter Time of Insertion: 03:24 Data 04/16/24 17:45 A&P Assessment and plan (1) 39 weeks gestation of : (2) History of hepatitis C: (3) Request for sterilization: (4) History of drug abuse in remission: PDMP PDMP Reviewed: Not Reviewed Attestations 2 Medical Necessity Statement*: Induction of labor Coding Level of Care Code Acute Code for Chg Fwd Diagnoses 39 weeks gestation of Z3A.39 History of hepatitis C Z86.19 Request for sterilization Z30.2 History of drug abuse in remission F19.11
--- NOTE | 2024-04-17 12:04 | PM.MISC ---
Miscellaneous Note Note: Bupivicaine 0.25% 10 cc injected via epidural for refractory pain of contractions
--- NOTE | 2024-04-17 12:52 | P.PCNOB_ITS ---
Delivery Note: Date of delivery: April 17, 2024 Pre-delivery diagnoses: 1. 39 weeks gestation for IOL 2. Multiparity 3. History of hep C (viral load undetec angle) 4. Desires elective sterilization 5. History of tobacco abuse 6. History of alcohol abuse Post-delivery diagnoses: S/p viable baby girl 8 pounds 4 ounces Procedure: Cervical ripening with IOL viable baby girl Op report anesthesia: Epidural Delivering Physician: Maye Cates DO Estimated blood loss (mL): 300 Findings: Viable baby girl Delivery: 34-year-old female delivery via SV D of viable female over intact perineum, the vertex presented OA presentation followed by the posterior then anterior shoulders, the remainder the baby's body followed without difficulty. The umbilical cord was clamped after short delay and cut. The oral and nasal pathways bulb suctioned. Baby placed on the mother's abdomen for bonding and nursing evaluation. Cord blood was obtained from the cord and handed off. The uterus was massaged Pitocin IV solution bolus started. The placenta presented in a Hugo presentation with trailing membranes. The uterus was massaged and firmed well. The cervix and vaginal vault were examined with no lacerations noted. EBL?300 anesthesia?epidural Apgars 8/9 weight 8 pounds 4 ounces Needle instrument sponge counts correct x 2 Mother and infant are both in stable and satisfactory condition. Post-Delivery Status: Stable History History History 3 Term 2 0 Miscarriages/Ectopic 0 Living Children 2 A&P Assessment and plan (1) 39 weeks gestation of : (2) History of hepatitis C: (3) Request for sterilization: PDMP PDMP Reviewed: Not Reviewed Coding Level of Care Code Acute Code for Chg Fwd Diagnoses 39 weeks gestation of Z3A.39 History of hepatitis C Z86.19 Request for sterilization Z30.2
[2024-04-17] MEDS: metoclopramide 5 mg/mL SDV 2 mL 10 MG IVP (13:29)
[2024-04-17] MEDS: lactated ringers 1,000 ML 999 ML IV (13:29)
[2024-04-17] MEDS: citric acid-sodium citrate 30 mL UDC PO (13:29)
[2024-04-17] MEDS: famotidine 20 mg/2 mL INJ IVP (13:29)
--- NOTE | 2024-04-17 14:32 | PM.OP ---
Operative Report Date of procedure: April 17, 2024 Pre-op diagnosis: S/p viable female at 39 weeks Desires elective sterilization Post-op diagnosis: S/p at 39 weeks S/p bilateral fimbriectomy for tubal sterilization Post-op findings: Normal tubes and ovaries bilaterally Procedure done: Mini laparotomy for tubal ligation Specimens removed/disposition: Bilateral tubal segments Surgeon: Maye Cates DO Anesthesia: General Estimated blood loss (mL): 20 Complications: None Findings: Normal tubes and ovaries Condition: stable Disposition: floor Brief History: 34-year-old female G3, P3 delivered via of viable female baby. Patient desires tubal sterilization. Risk and benefits reviewed to include bleeding, infection, future ectopic pregnancies which may require surgery, and complications with anesthesia. Procedure: Patient was taken to surgical suite after consents were obtained. Patient was placed in the supine position and general anesthesia administered. Patient's abdomen was then prepped and draped in the standard fashion. A infraumbilical incision was made and dissected to the fascia. The fascia was incised and tented up and the peritoneum opened bluntly. The omentum was manipulated away from the uterus with a sponge stick and the left fallopian tube teased to the incision opening and grasped with a Fenton and delivered through the incision. A hemostat was used to clamp a large portion of the tube including the fimbria. This was suture-ligated with 0 chromic x 2 transected and the tubal stump cauterized. Good hemostasis was noted. Same procedure was done on the right fallopian tube it is well was suture-ligated x 2 transected and the tubal stump cauterized. The right fallopian tube segment was marked. Both segments handed off. The peritoneum was closed with 2-0 Vicryl the subcu fat approximated with 2-0 Vicryl and the skin closed with 4-0 Vicryl in a running stitch. The incision was then infiltrated with local anesthetic cleansed and a Band-Aid applied. Needle instrument sponge counts correct x 2 Patient is in stable and satisfactory condition. Related Problem List Diagnoses (1) Status post vaginal delivery: (2) Status post tubal ligation: (3) 39 weeks gestation of : (4) History of hepatitis C: (5) Request for sterilization: (6) History of drug abuse in remission: (7) Tobacco abuse:
[2024-04-17] MEDS: lidocaine 2% INJ 20 mL INJECTION (14:40)
--- NOTE | 2024-04-17 15:50 | ANE.PACU2 ---
Inpatient post-anesthesia follow up: Airway intact: Yes Vital signs: Temperature 97.7 F Pulse Rate 80 Respiratory Rate 20 Blood Pressure 124/82 Pulse Oximetry 100 Oxygen Delivery Me thod Room Air Oxygen Flow Rate Fraction of Inspir ed Oxygen Hydration adequate: Yes Nausea and vomiting: No Pain level: 1 Mental status: Baseline Epidural Start/End: Epidural Start Date: 04/16/24 Epidural Start Time: 02:30 Epidural End Date: 04/17/24 Epidural End Time: 12:50
[2024-04-17] MEDS: docusate sodium 100 mg Capsule PO (20:08)
[2024-04-17] MEDS: ibuprofen 800 mg tablet PO (20:08)
[2024-04-17] MEDS: oxyCODONE-APAP 5-325 mg Tablet PO (22:27)
[2024-04-18 02:41] LABS: Hematocrit 31.6 % (36-47); Mean Corpuscular HGB Conc 34.5 g/dL (30-55); Mean Corpuscular Hemoglobin 31.5 pg (27-33); Mean Corpuscular Volume 91.3 fl (85-98); Mean Platelet Volume 11.2 fL (7.4-10.4); Platelet Count 179 10^3/cmm (157-399); Red Blood Count 3.46 10^6/uL (3.85-5.65); Red Cell Distribution Width 12.4 % (12.1-15.1); White Blood Count 20.99 10^3/uL (3.29-11.43)
[2024-04-18 05:19] VITALS: BP 107/57; PULSE 70
[2024-04-18 05:20] VITALS: RESP 16; TEMP 36.8
[2024-04-18 08:14] VITALS: RESP 18
[2024-04-18] MEDS: oxyCODONE-APAP 5-325 mg Tablet PO (08:14)
[2024-04-18] MEDS: docusate sodium 100 mg Capsule PO (08:15)
[2024-04-18] MEDS: ibuprofen 800 mg tablet PO (08:15)
[2024-04-18] MEDS: PRENATAL VIT NO.130/IRON/FOLIC 1 EACH TABLET PO (08:15)
--- NOTE | 2024-04-18 09:55 | PM.OBGYDC ---
Discharge Providers PSYCHOMETRIST Date of Admission: 04/16/24 22:48 Date of Discharge: 04/18/24 Attending Provider at Admission: Maye Cates DO Attending Provider at Discharge: Marcus Moreno MD Consults: none Primary Care Provider: Luis Castaneda Diagnoses at Discharge Discharge Diagnosis (1) Status post vaginal delivery: Details from hospital stay: 34 y.o. admitted at 39 weeks for induction of labor patient progressed to complete fetus was reassuring throughout patient had vaginal delivery without any lacerations She desires permanent sterilization bilateral tubal ligation was done patient did well and was discharged to home on the first second day Status: Resolved (2) Status post tubal ligation: Status: Acute (3) 39 weeks gestation of : Status: Inactive (4) History of hepatitis C: Status: Inactive Permanent problem details: treated with medication (5) Request for sterilization: Status: Inactive (6) History of drug abuse in remission: Status: Inactive (7) Tobacco abuse: Status: Acute Reason for Visit Reason for Visit: IOL Brief History: 34 y.o. admitted at 39 weeks for induction of labor Hospital Course Hospital Course 34 y.o. admitted at 39 weeks for induction of labor patient progressed to complete fetus was reassuring throughout patient had vaginal delivery without any lacerations She desires permanent sterilization bilateral tubal ligation was done patient did well and was discharged to home on the first second day Information Peripartum Data: Delivery Method: Vaginal Laceration description: None Episiotomy description: None complications: none Physical Exam Narrative: general: comfortable, awake, alert Lungs: clear Cor: RRR Abd: subumbilical wound clean and dry soft, nontender Ext: normal Urinary Catheter Management: Araujo: Cath Placed During This Visit: yes, but has since been removed by the nurse Reason for Continuing Indwelling Catheter: Decision to DC Catheter Urinary Catheter Date of Insertion: 04/17/24 Urinary Catheter Time of Insertion: 03:24 Date Urinary Catheter Removed: 04/17/24 Time Urinary Catheter Discontinued: 12:20 History History History 3 Term 3 0 Miscarriages/Ectopic 0 Living Children 3 Discharge Data Studies Completed and Pending Completed Studies During Hospitalization Category Date Time Status Pathology: Surgical [PTH] Routine Pth 04/17/24 14:04 Completed Laboratory Results WBC 20.99 10^3/uL (3.29-11.43) H 04/18/24 02:35 RBC 3.46 10^6/uL (3.85-5.65) L 04/18/24 02:35 Hgb 10.90 g/dL (11.27-16.99) L 04/18/24 02:35 Hct 31.6 % (36-47) L 04/18/24 02:35 MCV 91.3 fl (85-98) 04/18/24 02:35 MCH 31.5 pg (27-33) 04/18/24 02:35 MCHC 34.5 g/dL (30-55) 04/18/24 02:35 RDW 12.4 % (12.1-15.1) 04/18/24 02:35 Plt Count 179 10^3/cmm (157-399) 04/18/24 02:35 MPV 11.2 fL (7.4-10.4) H 04/18/24 02:35 Neut % (Auto) 73.3 % 04/16/24 17:45 Lymph % (Auto) 20.9 % 04/16/24 17:45 Dale % (Auto) 4.7 % 04/16/24 17:45 Eos % (Auto) 0.5 % 04/16/24 17:45 Baso % (Auto) 0.2 % 04/16/24 17:45 Neut # (Auto) 7.76 10^3/uL (1.8-7.7) H 04/16/24 17:45 Lymph # (Auto) 2.2 10^3/uL (0.8-4.8) 04/16/24 17:45 Dale # (Auto) 0.5 10^3/uL (0.2-0.9) 04/16/24 17:45 Eos # (Auto) 0.1 10^3/uL (0.0-0.8) 04/16/24 17:45 Baso # (Auto) 0.0 10^3/uL (0.0-0.1) 04/16/24 17:45 Nucleated RBC % (auto) 0 % 04/16/24 17:45 Nucleated RBCs # 0.0 /100WBC 04/16/24 17:45 Procedures Performed induction of labor vaginal delivery bilateral salpingectomy Vitals Last Vital Signs Temp 97.7 F 04/18/24 13:30 Pulse 80 04/18/24 13:30 Resp 20 H 04/18/24 13:30 BP 124/82 04/18/24 13:30 Pulse Ox 100 04/17/24 15:00 O2 Del Method Room Air 04/18/24 09:56 Results Labs OB ([facility]): Blood Type A Positive 10/13/23 Antibody Screen Negative 10/13/23 Hct, (36-47) 39.2 % 06/02/24 Hgb, (11.27-16.99) 13.80 g/dL 06/02/24 Rho(D) Type Rh positive 10/13/23 Plt Count, (157-399) 207 10^3/cmm 06/02/24 Hep Bs Antigen, (NON-REACTIVE) Non-reactive 10/25/23 Hep Bs Ag Confirmation Not Reportable 10/25/23 Hepatitis C Antibody, (Nonreactive) Reactive H 10/13/23 Rubella IgG Antibody, (0.0-10.0) 238.7 IU/mL H 10/13/23 RPR, (Nonreactive) Nonreactive 10/13/23 HIV 1&2 Ab & HIV 1 Ag, (Non-Reactiv) Non-reactive 10/13/23 TSH, (0.27-4.20) 0.36 uIU/mL 10/01/23 Free T4, (0.82-1.77) 1.04 ng/dL 10/01/23 C.trachomatis RNA (TMA), (NOT DETECTED) Not detected 10/25/23 N.gonorrhoeae RNA (TMA), (NOT DETECTED) Not detected 10/25/23 T. vaginalis Amp RNA, (NOT DETECTED) Not detected 10/25/23 Chlamydia/GC Comment See note 10/25/23 Glucose 1 Hr 50 gm, (85-140) 112 mg/dL 01/03/24 Hemoglobin A1c, (4.0-6.0) 5.4 % 10/01/23 Ser , Semi-Qnt 10957.00 mIU/mL 10/01/23 HCG, Qual, (Negative) Positive H 10/01/23 Urine Opiates Screen, (Negative) Negative ng/mL 10/13/23 Ur Barbiturates Screen, (Negative) Negative ng/mL 10/13/23 Ur Phencyclidine Scrn, (Negative) Negative ng/mL 10/13/23 Ur Amphetamines Screen, (Negative) Negative ng/mL 10/13/23 U Benzodiazepines Scrn, (Negative) Negative ng/mL 10/13/23 Urine Cocaine Screen, (Negative) Negative ng/mL 10/13/23 U Marijuana (THC) Screen, (Negative) Negative ng/mL 10/13/23 Micro Urine Specimen 10/13/23 Pap Smear Interpret See note 10/25/23 Discharge Plan Discharge Patient Disposition: Home Condition: Stable Prescriptions: Continued DHA 200 mg capsule 200 mg PO DAILY omeprazole 40 mg capsule,delayed release(DR/EC) 40 mg PO DAILY Qty: 90 3RF No Action levocetirizine [Xyzal] 5 mg tablet 5 mg PO DAILY PRN (Reason: allergy symptoms) 30 Days Qty: 30 5RF telmisartan 20 mg tablet 20 mg PO DAILY 30 Days Qty: 30 0RF Discharge Orders: Discharge Order (Routine); Ordered 04/18/24 Ordered By: Marcus Moreno Referrals: Sherrill Murcia APN, [facility] [Nurse Practitioner, PSYCHOMETRIST] - 05/30/24 1:45 pm Discharge Diet: Usual diet Discharge Activity: Increase activity as tolerated Patient Instructions: Depression (DC), Opioid Safety (DC), Preeclampsia and Eclampsia After Delivery (GEN), Hemorrhage (DC), OB Discharge Report, OB Food/Drug Interaction Guide, Opioid Safety, OB Home Care, OB Vaginal Deliveries - [facility], Depression Discharge Attestations PSYCHOMETRIST Time Spent in Discharge Care*: less than 30 min Coding Level of Care Code Acute Code for Chg Fwd Diagnoses Status post vaginal delivery Status post tubal ligation Z98.51 39 weeks gestation of Z3A.39 History of hepatitis C Z86.19 Request for sterilization Z30.2 History of drug abuse in remission F19.11 Tobacco abuse Z72.0
[2024-04-18 09:56] VITALS: BP 113/72; PULSE 84; TEMP 36.7
[2024-04-18 13:30] VITALS: BP 124/82; PULSE 80; RESP 20; TEMP 36.5
== END 2024-04-18 13:40 | disposition home or self-care (01) | DRG 798 ==
LOC: OPOB 04-25 07:49
PROVIDERS: Admitting Provider Obstetrics & Gynecology; PCP Nurse Practitioner Family; Visit Provider Obstetrics & Gynecology
PROC: (CPT 58605; principal; 2024-04-17 13:40)
DX: O99.62 Diseases of the digestive system complicating childbirth (principal); Z37.0 Single live birth; Z3A.39 39 weeks gestation of pregnancy; Z30.2 Encounter for sterilization; F19.11 Other psychoactive substance abuse, in remission; O99.334 Smoking (tobacco) complicating childbirth; F17.200 Nicotine dependence, unspecified, uncomplicated; K21.9 Gastro-esophageal reflux disease without esophagitis
CPT/HCPCS: 36415; 51702; 58605; 59409; 85025; 85027; 88302; 96374; J0330; J1100; J1885; J2405; J2590; J2704; J2765; J2795; J3010; J3490; J7040; J7120; J7121; J9999

== ENCOUNTER → 2024-06-02 11:26 | Outpatient (BNVA) | payer MEDICAID, SELFPAY | PROVIDERS: PCP Nurse Practitioner Family; Visit Provider Nurse Practitioner Women's Health | DX: R03.0 Elevated blood-pressure reading, without diagnosis of hypertension (principal) | CPT/HCPCS: 80053; 84315; 85025 ==